=== PATIENT | male | born 2000 | race Caucasian/White ===

== ENCOUNTER 2019-06-20 22:04 | Emergency (ER) | payer OTHER ==
[~2019-06-20] VITALS: Ht 177.8 cm; Wt 86.3 kg
[2019-06-20] MEDS ORDERED: RX-CEPHALEXIN (KEFLEX) 250 MG CAP PPK#4 PO STA (22:13)
[2019-06-20] MEDS ORDERED: RX-HYDROCODONE/APAP 5/325 MG #4 TAB PK PO PRN (22:15)
[2019-06-20] MEDS ORDERED: BACITRACIN OINTMENT 28 GM TUBE ONE (22:18)
[2019-06-20] MEDS ORDERED: BACI28.4 TP (22:19)
[2019-06-20] MEDS ORDERED: CEPH500T PO (22:19)
[2019-06-20] MEDS ORDERED: ACHD5005 PO (22:19)
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
[2019-06-21] MEDS ORDERED: BACITRACIN OINTMENT 28 GM TUBE TOP SCH (09:00)
== END 2019-06-20 22:34 | disposition home or self-care (01) ==
LOC: ER 22:09
DX: T23.201A Burn of second degree of right hand, unspecified site, initial encounter (principal); X19.XXXA Contact with other heat and hot substances, initial encounter
CPT/HCPCS: 99282